=== PATIENT | female | born 1965 | race Caucasian/White ===

== ENCOUNTER 2021-03-04 08:36 | Emergency (ER) | payer OTHER, SELFPAY ==
--- NOTE | ~2021-03-04 | XR_ITS ---
EXAMINATION: XR knee RT 3V DATE: 03/04/2021 09:02 INDICATION: Right knee injury and pain. TECHNIQUE: 3 views of right knee were obtained. COMPARISON: None. FINDINGS: Bone alignment is normal. No fracture. There is mild osteoarthritis of medial and lateral c ompartments characterized by tiny marginal osteophytes. No joint space narrowing. There is a moderate -sized knee joint effusion. IMPRESSION: 1. Mild right knee osteoarthritis. 2. Moderate-sized right knee joint effusion. Reviewed, dictated and finalized at location A.
[2021-03-04 08:56] VITALS: BP 98/62; PULSE 72; RESP 12; TEMP 37.1; O2SAT 100
--- NOTE | 2021-03-04 10:58 | ED.LOWEXIN ---
HPI - Extremity Injury (Lower) General Chief Complaint: Extremity Injury, Lower Stated Complaint: knee pain Time Seen by Provider: 03/04/21 10:14 Source: patient Mode of arrival: wheelchair Limitations: no limitations History of Present Illness HPI Narrative: This is a 55-year-old female that presents the emergency department for right knee pain after an injury this morning. Reports she was pushing a very heavy cart at work. She felt her right knee pop and had immediate pain and swelling in the knee. Reports decreased range of motion due to pain. Denies numbness. Related Data Allergies Allergy/AdvReac Type Severity Reaction Status Date / Time latex Allergy Unknown Verified 08/18/19 09:14 Sulfa (Sulfonamide Allergy Unknown X Verified 08/18/19 09:14 Antibiotics) diazepam AdvReac Mild Other Verified 08/18/19 09:14 Review of Systems Review of Systems: CONSTITUTIONAL: Denies fever MUSCULOSKELETAL: Reports joint pain, and myalgia. NEUROLOGIC: Denies numbness All systems reviewed & are unremarkable except as noted in HPI and below PMFSH Past Medical History Medical History (Updated 03/04/21 @ 11:02 by Alpa Shen PA-C) History of anxiety History of depression Family History Family History (System 08/18/19 @ 09:14 by Sherlyn Raines) Sibling Hypertension Family history of alcoholism Family history of coronary artery disease Family history of colonic diverticulitis Father Family history of alcoholism Mother Family history of alcoholism Diabetes mellitus Grandparent Cerebrovascular accident Family history of malignant neoplasm Family history of malignant neoplasm of breast Other Family history of congestive heart failure Family history of malignant neoplasm of breast in first degree relative Social History Social History (Updated 03/04/21 @ 11:00 by Alpa Shen PA-C) Smoking status: Former smoker Smoking end date: 06/25/96 Alcohol intake: current Exam Narrative: GENERAL: Well-appearing, well-nourished, and in no acute distress. HEAD: Normocephalic, atraumatic. EYES: EOMI. EXTREMITIES: Decreased active range of motion of the right knee due to pain. Mild edema about the right knee anteriorly. Normal DP pulses. Normal sensation SKIN: Warm, dry, no rash. NEURO: No focal deficits. Alert and oriented x3. PSYCH: Normal mood and affect Course Vital Signs Vital signs: Vital Signs Temperature 98.7 F 03/04/21 08:56 Pulse Rate 72 03/04/21 08:56 Respiratory Rate 12 03/04/21 08:56 Blood Pressure 98/62 L 03/04/21 08:56 Pulse Oximetry 100 03/04/21 08:56 Temperature 98.7 F 03/04/21 08:56 Pulse Rate 72 03/04/21 08:56 Respiratory Rate 12 03/04/21 08:56 Blood Pressure 98/62 L 03/04/21 08:56 Pulse Oximetry 100 03/04/21 08:56 MDM - Extremity Injury (Lower) MDM Narrative Medical decision making narrative: Patient presents to the emergency department for right knee injury sustained just prior to arrival. Patient is neurovascularly intact. Right knee x-ray shows osteoarthritis and a moderate sized joint effusion. Patient placed in a knee immobilizer and given crutches for knee sprain. Will be given orthopedics for follow-up. She was given warnings to return to the ER Imaging Data Radiologist's impression: ITS Impressions Knee X-Ray 03/04/21 09:05 IMPRESSION: 1. Mild right knee osteoarthritis. 2. Moderate-sized right knee joint effusion. Critical Care Time Critical Care Time Critical Care Time: No Discharge Plan Discharge Clinical Impression: Acute internal derangement of knee Qualifiers: Laterality: right Qualified Code(s): M23.91 - Unspecified internal derangement of right knee Patient Disposition: Home, Self-Care Condition: Stable Instructions: Knee Sprain (ED) Additional Instructions: Return to the emergency department if you experience fever, redness and swelling of your leg, numbness, or any ot
[2021-03-04] MEDS: IBUPROFEN 600 MG TABLET PO (11:03)
== END 2021-03-04 11:24 | disposition home or self-care (01) ==
PROVIDERS: Emergency Provider Emergency Medicine
DX: M23.91 Unspecified internal derangement of right knee (principal); S89.91XA Unspecified injury of right lower leg, initial encounter; Z87.891 Personal history of nicotine dependence; M17.11 Unilateral primary osteoarthritis, right knee; X50.0XXA Overexertion from strenuous movement or load, initial encounter
CPT/HCPCS: 73562; 99283; A9270